=== PATIENT | male | born 1950 | race Caucasian/White ===

== ENCOUNTER 2023-04-27 08:26 | Outpatient (RCR) | payer MEDICARE, SELFPAY | END 2023-04-27 23:59 | disposition home or self-care (01) | LOC: CRHB 08:26 | PROVIDERS: ATTENDING PHYSICIAN Internal Medicine Cardiovascular Disease; FAMILY PHYSICIAN Internal Medicine | DX: I25.10 Atherosclerotic heart disease of native coronary artery without angina pectoris (principal); Z95.1 Presence of aortocoronary bypass graft; I25.2 Old myocardial infarction | CPT/HCPCS: G0422; G0423 ==

== ENCOUNTER 2023-05-27 08:17 | Outpatient (RCR) | payer MEDICARE, SELFPAY | END 2023-05-27 23:59 | disposition home or self-care (01) | LOC: CRHB 08:17 | PROVIDERS: ATTENDING PHYSICIAN Internal Medicine Cardiovascular Disease; FAMILY PHYSICIAN Internal Medicine | DX: I25.10 Atherosclerotic heart disease of native coronary artery without angina pectoris (principal); Z95.1 Presence of aortocoronary bypass graft; I25.2 Old myocardial infarction | CPT/HCPCS: G0422; G0423 ==

== ENCOUNTER 2023-06-15 07:47 | Outpatient (RCR) | payer MEDICARE, SELFPAY | END 2023-06-15 23:59 | disposition home or self-care (01) | LOC: CRHB 07:47 | PROVIDERS: ATTENDING PHYSICIAN Internal Medicine Cardiovascular Disease | DX: I25.2 Old myocardial infarction (principal); Z95.1 Presence of aortocoronary bypass graft | CPT/HCPCS: G0422; G0423 ==

== ENCOUNTER → 2024-01-19 08:09 | Outpatient (REF) | payer MEDICARE, SELFPAY | LOC: RCS 08:09 | PROVIDERS: ATTENDING PHYSICIAN Internal Medicine Cardiovascular Disease; FAMILY PHYSICIAN Internal Medicine | DX: I25.10 Atherosclerotic heart disease of native coronary artery without angina pectoris (principal); Z95.1 Presence of aortocoronary bypass graft; I10 Essential (primary) hypertension | CPT/HCPCS: 93306 ==